=== PATIENT | male | born 1985 | race Caucasian/White ===

== ENCOUNTER → 2017-10-19 | Outpatient (CLI) | payer OTHER | LOC: COL.PUL 12:48 | DX: R07.9 Chest pain, unspecified (principal) | CPT/HCPCS: J7674 ==

== ENCOUNTER → 2017-11-18 | Outpatient (CLI) | payer OTHER | LOC: COL.RAD 11:23 | DX: R06.02 Shortness of breath (principal); R10.9 Unspecified abdominal pain | CPT/HCPCS: A9539; A9540 ==